=== PATIENT | male | born 1940 | race Caucasian/White ===

== ENCOUNTER → 2019-10-18 | Outpatient (CLI) | payer MEDICARE ==
[~2019-10-18] MED LIST: FISH1000 PO; HYDACE5 PO; LITH300ER PO; TOCO1000 PO
== END | disposition home or self-care (01) ==
LOC: LAB SHORT 08:58 → LAB 08:58
DX: L08.9 Local infection of the skin and subcutaneous tissue, unspecified (principal)
CPT/HCPCS: 87070; 87205

== ENCOUNTER 2019-10-21 00:32 | Day surgery (SDC) | payer MEDICARE | END 2019-10-21 23:16 | disposition home or self-care (01) | LOC: WOUND 00:32 | DX: L89.892 Pressure ulcer of other site, stage 2 (principal); I87.2 Venous insufficiency (chronic) (peripheral) | CPT/HCPCS: G0463 ==

== ENCOUNTER 2019-10-28 00:13 | Day surgery (SDC) | payer MEDICARE | END 2019-10-28 23:04 | disposition home or self-care (01) | LOC: WOUND 00:13 | DX: L89.892 Pressure ulcer of other site, stage 2 (principal); I87.2 Venous insufficiency (chronic) (peripheral); J44.9 Chronic obstructive pulmonary disease, unspecified; M19.90 Unspecified osteoarthritis, unspecified site ==

== ENCOUNTER 2019-11-27 13:37 | Inpatient (IN) | payer MEDICARE ==
[~2019-11-27] VITALS: Ht 180.3 cm; Wt 84.4 kg
[~2019-11-27 13:37] MED LIST changes: -HYDACE5 PO; -LITH300ER PO; +Lithium Carbon300 M2 PO
[2019-11-27] MEDS ORDERED: Prinivil10 MG PO (13:53)
[2019-11-27] MEDS ORDERED: Ceftriaxone250 MG (13:54)
[2019-11-27 14:36] LABS: Hematocrit 41.5 % (37.0-53.0); Mean Corpuscular HGB 31.1 pg (26.0-34.0); Mean Corpuscular HGB Conc 31.3 g/dL (31.5-36.5); Mean Corpuscular Volume 99 fL (80-100); Mean Platelet Volume 9.6 fL (9.1-12.4); Platelet Count 186 K/mm3 (150-400); RDW Coefficient Variation 13.6 % (11.7-14.2); RDW Standard Deviation 50.3 fL (35.1-46.3); Red Blood Cell Count 4.18 M/mm3 (4.30-5.90); White Blood Cell Count 18.55 K/mm3 (4.00-11.30)
[2019-11-27 14:45] LABS: Troponin I <0.015 ng/mL (0.000-0.040)
[2019-11-27 15:02] LABS: Alanine Aminotransfer (ALT/SGP 21 U/L (12-78); Albumin, Blood 3.5 g/dL (3.4-5.0); Alk Phos 35 U/L (50-136); Anion Gap 6 mmol/L (6-16); Aspartate Aminotrans (AST/SGOT 14 U/L (12-37); Bilirubin, Total 0.8 mg/dL (0.1-1.0); Blood Urea Nitrogen 21 mg/dL (8-24); Bun/Creatinine Ratio 15.6 (12.0-20.0); CO2, Blood 25 mmol/L (21-32); Calcium, Blood 9.1 mg/dL (8.5-10.1); Chloride, Blood 104 mmol/L (98-108); Creatinine, Blood 1.35 mg/dL (0.60-1.20); Globulin, Blood 3.5 g/dL (2.2-4.0); Glomerular Filtration Rate 54 (60-); Glucose, Blood 177 mg/dL (70-99); Potassium, Blood 4.1 mmol/L (3.5-5.5); Sodium, Blood 135 mmol/L (136-145)
[2019-11-27 15:11] LABS: BAND PERCENT MAN 12 % (0-8); BASOPHILS PERCENT MAN 0 % (0-2); EOSINOPHILS ABSOLUTE MAN 0.55 K/mm3 (0.00-0.68); EOSINOPHILS PERCENT MAN 3 % (0-6); MONOCYTES ABSOLUTE MAN 0.74 K/mm3 (0.16-1.47); MONOCYTES PERCENT MAN 4 % (4-13); NEUTROPHILS ABSOLUTE MAN 17.25 K/mm3 (1.96-9.15); SEG NEUTROPHILS PERCENT MAN 81 % (41-73); TOTAL CELLS COUNTED 100
[2019-11-27] MEDS ORDERED: LATA.005SO BOTHEYES (16:31)
[2019-11-27] MEDS ORDERED: IPRATROPIUM BRO30 ML (16:31)
[2019-11-27] MEDS ORDERED: Lithium Carbon300 M2 PO (16:58)
[2019-11-27] MEDS ORDERED: TRAM50 PO (16:59)
[2019-11-27] MEDS ORDERED: NORCO 7.5-3251 EAC1 PO (17:00)
[2019-11-27 18:11] LABS: Source, Urine Clean Catch
[2019-11-27 18:14] LABS: Appearance, Urine Clear (Clear); Bilirubin, Urine Neg (Neg); Blood, Urine Neg (Neg); Color, Urine Yellow (P-Yellow); Glucose Qualitative, Urine Neg (Neg); Ketones, Urine 1+ (Neg); Leukocyte Esterase, Urine Neg (Neg); Nitrite, Urine Neg (Neg); Protein, Urine Neg (Neg); Urobilinogen, Urine NORM (Normal)
[2019-11-27 19:02] LABS: Lithium 0.53 mmol/L (0.60-1.20)
--- NOTE | 2019-11-28 00:25 | NUR ---
ASSUMED CARE NOTE: ASSUMED CARE OF PT AT 2134, RECEVIED REPORT FROM RADHA CHACON. PT IS A/OX3, PT IS HOWEVER A POOR HISTORIAN WHEN IT COMES TO HIS PAST MEDICAL HISTORY. PT IS ON RA WITH SPO2 ABOVE 90% PT DENIES BEING SOB AT THIS TIME. PT STS HE BECOMES SOB WHILE AMBULATING. PT IS IN SR WITH HR IN THE 70'S, MURMUR CAN BE HEARD WITH ASCULTATION. PULSES ARE STRONG T/O ALL EXTREMITES. PT HAS A WOUND R FOOT (BALL OF FOOT) WOUND WAS CLEANED AND NEW MEPILEX WAS APPLIED, SEE PICTURE IN CHART. UPON ARRIVAL PT WAS GIVEN TO UNITS OF FFP. LACTIC HAS ELEVATED TO 3.2, CALLED SUMAN ELIZABETH, NO NEW ORDERS AT THIS TIME. PT FACIAL SWELLING HAS IMPROVED ACCORDING TO ER NURSE, PICTURES TAKEN FOR RECORDS. PT DENIES PRURITUS AT THIS TIME. PT REMAINS NPO. SUMAN ELIZABETH PERFORMED SWALLOW EVAL AT BEDSIDE, PT HAD DIFFICULTY SWALLOWING SMALL SIPS OF WATER, PT BEGAN TO COUGH. SWALLOW EVAL IN THE AM. PT STATES HE IS INCONTINENT AT NIGHT, HAS BEEN USING URINAL AT BEDSIDE, ATTENDS IN PLACE. BED AT LOWEST LEVEL, CALL LIGHT WITHIN REACH.
[2019-11-28 03:36] LABS: BASOPHILS ABSOLUTE AUTO 0.01 K/mm3 (0.00-0.23); BASOPHILS PERCENT AUTO 0 % (0-2); EOSINOPHILS ABSOLUTE AUTO 0.04 K/mm3 (0.00-0.68); EOSINOPHILS PERCENT AUTO 0 % (0-6); Hematocrit 37.8 % (37.0-53.0); Hemoglobin 11.9 g/dL (13.5-17.5); IMMATURE GRAN ABSOLUTE AUTO 0.19 K/mm3 (0.00-0.10); IMMATURE GRAN PERCENT AUTO 1 % (0-1); LYMPHOCYTES ABSOLUTE AUTO 0.21 K/mm3 (0.84-5.20); LYMPHOCYTES PERCENT AUTO 2 % (21-46); MONOCYTES ABSOLUTE AUTO 0.15 K/mm3 (0.16-1.47); MONOCYTES PERCENT AUTO 1 % (4-13); Mean Corpuscular HGB 31.2 pg (26.0-34.0); Mean Corpuscular HGB Conc 31.5 g/dL (31.5-36.5); Mean Corpuscular Volume 99 fL (80-100); Mean Platelet Volume 9.6 fL (9.1-12.4); NEUTROPHILS ABSOLUTE AUTO 13.08 K/mm3 (1.96-9.15); NEUTROPHILS PERCENT AUTO 96 % (41-73); Platelet Count 144 K/mm3 (150-400); RDW Coefficient Variation 13.8 % (11.7-14.2); RDW Standard Deviation 50.4 fL (35.1-46.3); Red Blood Cell Count 3.82 M/mm3 (4.30-5.90); White Blood Cell Count 13.68 K/mm3 (4.00-11.30)
--- NOTE | 2019-11-28 03:36 | NUR ---
UPDATE: NO SIGNIFICANT CHANGES. PT'S SWELLING TO FACE HAS DECREASED. PT STATES THAT SKIN FEELS LESS TIGHT. PT OZZING FROM BLISTERS ON FACE. VITALS STABLE. WILL CONTINUE TO MONITOR PT.
[2019-11-28 03:54] LABS: Alanine Aminotransfer (ALT/SGP 22 U/L (12-78); Albumin, Blood 3.2 g/dL (3.4-5.0); Albumin/Globulin Ratio 0.9 (0.8-1.8); Alk Phos 32 U/L (50-136); Anion Gap 7 mmol/L (6-16); Aspartate Aminotrans (AST/SGOT 7 U/L (12-37); Bilirubin, Total 0.3 mg/dL (0.1-1.0); Blood Urea Nitrogen 17 mg/dL (8-24); Bun/Creatinine Ratio 23.3 (12.0-20.0); CO2, Blood 23 mmol/L (21-32); Calcium, Blood 8.9 mg/dL (8.5-10.1); Chloride, Blood 113 mmol/L (98-108); Creatinine, Blood 0.73 mg/dL (0.60-1.20); Globulin, Blood 3.6 g/dL (2.2-4.0); Glomerular Filtration Rate >60 (60-); Glucose, Blood 222 mg/dL (70-99); Potassium, Blood 4.1 mmol/L (3.5-5.5); Sodium, Blood 143 mmol/L (136-145); Total Protein, Blood 6.8 g/dL (6.4-8.2)
--- NOTE | 2019-11-28 05:07 | NUR ---
SHIFT SUMMARY: NO SIGNIFICANT CHANGES, SEE PREVIOUS NOTE. PT CONTINUES TO BE A/OX3. PT HAS REMAINED ON RA WITH SPO2 ABOVE 90%, PT HAS DENIED SOB T/O SHIFT. PT HAS BEEN HAVING MODERATE AMOUNT OF THIN WHITE SECRETIONS, ORAL SUCTION AT BEDSIDE. PT WAS BEEN IN SR WITH HR IN THE 70'S, 1 DEGREE HB NOTED. PT HAS DENIED NAUSEA T/O SHIFT, ACTIVE BOWEL TONES HEARD IN ALL QUADRANTS, PT HAS A BM THIS SHIFT, ONE PERSON ASSIST TO BEDSIDE COMMODE. PT HAS BEEN USING URINAL AT BEDSIDE, ATTENDS IN PLACE. NO FURTHER SWELLING TO FACE, HOWEVER IS WEEPING T/O FACIAL PORES, DRAINAGE CRUST AFTER IT DRIES, YELLOWISH IN COLOR. PT HAS BEEN REPOSITIONED Q2HR T/O SHIFT. VITALS STABLE, AFEBRILE. BED AT LOWEST LEVEL, CALL LIGHT WITHIN REACH. WILL CONTINUE TO MONITOR PT UNTIL REPORT IS GIVEN TO ONCOMING SHIFT.
--- NOTE | 2019-11-28 08:30 | NUR ---
ASSUMED CARE REPORT RECEIVED FROM OSWALDO HANDLEY. PT RESTING IN BED, ALERT AND ORIENTED. PT'S SPEECH IS A LITTLE BIT SLURRED, WHICH PT SAYS IS NOT NORMAL FOR HIM, BUT IS HOW IT HAS BEEN SINCE COMING IN. FACE IS SWOLLEN AROUND HIS CHIN AND JAW, UP INTO BOTH OF HIS EARS. PT STATES THAT IT FEELS ABOUT THE SAME YESTERDAY. PT'S TONGUE DOES NOT APPEAR SWOLLEN. PT IS MANAGING HIS SECRETIONS WITHOUT DIFFICULTY. PT WAS CLEARING HIS THROAT, BUT HE SAYS HE HAS POST NASAL DRIP. EDUCATED PT TO INFORM STAFF IF HE FEELS LIKE HE IS NEEDING TO CLEAR HIS THROAT MORE OR IF HIS THROAT IS FEELING TIGHT. PT HAS REDNESS SPREADING FORM HIS L CHEST AROUND THE NIPPLE UP AND ACROSS TO HIS RIGHT CHEST. NO BLISTERS AT THIS TIME, BUT DOES HAVE SMALL SCALY APPEARING SPOTS. UPPER BACK IS PINK WELL WITH SOME OF THESE SPOTS, BUT NOT SEVERE. REDNESS BLANCHES. PT'S IS BRINGING IN EYE DROPS THAT PT STATES HE JUST SWITCHED TO 3 DAYS AGO WELL HIS NASAL SPRAY AND OINTMENT FOR HIS WOUND ON HIS R FOOT. DR. MITCHELL GAVE APPROVAL TO ORDER PT'S NASAL SPRAY AND OINTMENT WHEN IT GETS IN. HOLD ON THE EYE DROPS FOR NOW. NO OTHER REQUESTS FROM PT AT THIS TIME. CONTINUING TO MONITOR.
[2019-11-28] MEDS ORDERED: Mupirocin22 GM TOP (09:49)
--- NOTE | 2019-11-28 12:29 | NUR ---
REASSESSMENT PT'S LOWER FACE REAMINS SWOLLEN BUT DOESN'T APPEAR TO HAVE INCREASED SINCE THIS MORNING. REDNESS AND RASH OVER THE TORSO APPEARS UNCHANGED WELL. LUNGS REMAIN CLEAR, NO TONGUE SWELLING OR DIFFICULTY BREATHING. PT GOT UP TO THE CHAIR AND HAS SPENT HALF THE MORNING SITTING UP. PT WAS EVALUATED BY SPEECH THERAPY. PRECAUTIONS REVIEWED WITH PT BEFORE GIVING HIM HIS LUNCH TRAY. SR, BP STABLE. DRESSING ON HIS FOOT CHANGED AND OINTMENT APPLIED THAT PT HAS BEEN USING AT HOME. PT'S HAS BEEN AT THE BEDSIDE. CONTINUING TO MONITOR.
--- NOTE | 2019-11-28 15:01 | NUR ---
PT'S SWELLING APPEARS TO BE DECREASING WITH THE SKIN ACROSS HIS JAW, CHEEKS AND EARS NOT APPEARING TIGHT. PT STATES HE FEELS LIKE IT IS GOING DOWN WELL. RASH REMAINS UNCHANGED, NO BLISTERS. DR. MITCHELL NOTIFIED AND RECEIVED ORDER TO TRANSFER PT TO [facility], NO TELE. ALSO RECEIVED OK TO CHECK BLOOD SUGARS SINCE PT'S GLUCOSE THIS AM WAS 222 AND PT IS ON STEROIDS.
--- NOTE | 2019-11-28 16:12 | NUR ---
SHIFT SUMMARY PT HAS BEEN RESTING IN BED THIS AFTERNOON SINCE EATING LUNCH. HE DID WELL FOLLOWING INSTRUCTIONS TO TAKE SMALL SIPS AND EAT SLOW SO DID NOT HAVE ANY SIGNS OF ASPIRATION WHILE EATING. HIS RASH REMAINS UNCHANGED, SWELLING APPEARS A LITTLE BETTER STATED EARLIER. LUNGS ARE CLEAR, RA, SR, BP STABLE, VOIDING IN THE URINAL. DRESSING ON FOOT WOUND CHANGED TODAY. REFUSED A SHOWER THIS AFTERNOON. AWAITING MEDICAL BED. CONTINUING TO MONITOR.
--- NOTE | 2019-11-28 20:00 | NUR ---
ASSUMED CARE: PT A&0. AWAKE IN BED. IN SR. SBP IN THE 110S,HR IN THE 60S. LUNG SOUNDS CLEAR, SPO2 >90% ON RA. VOIDING INTO URINAL. TOOK MEDS THIS EVENING WITH APPLESAUCE AND TOLERATED WELL. YESTERDAY HIS LIPS AND FACE EXTENDING TO HIS EARS WAS SWOLLEN. PT STATES DESIREE FEELS THE SWELLING IS ALMOST GONE AND HES ALMOST AT BASELINE. RASH IS STILL PRESENT ON CHEST. PT IS A MOD ASSIST WHEN UP. HE USES A WALKER/CANE AT HOME. R LEG IS WEAKER THAN LEFT D/T COMPLICATIONS FROM AN EPIDURAL. BILAT IVS IN ARMS. NS INFUSING AT 100MLS/HR. WILL CONTINUE TO MONITOR
--- NOTE | 2019-11-28 22:09 | NUR ---
PT REPORTED TO ME THAT HE HAD HIS SNEAK HIM IN A HYDROCODONE DURING DAYSHIFT. HE HAD PREVIOUSLY STATED THAT HE HADN'T TAKEN ONE IN 4 OR 5 DAYS AND WAS STARTING TO GET A LITTLE TWITCHY. HE HAS CHRONIC PAIN AND TAKES HYDROCODONE ON A REGULAR BASIS. I ASKED PT IF HE FELT LIKE HE NEEDED PAIN MEDS WHILE IN THE HOSPITAL. HE STATED HE WOULDNT NEED THEM. CALLED SUMAN ELIZABETH TO LET HER KNOW PT HAD BRING OUTSIDE MED IN TO HOSPITAL. NO ORDERS RECEIVED
[2019-11-29 03:22] LABS: BASOPHILS ABSOLUTE AUTO 0.01 K/mm3 (0.00-0.23); BASOPHILS PERCENT AUTO 0 % (0-2); EOSINOPHILS PERCENT AUTO 1 % (0-6); Hematocrit 35.5 % (37.0-53.0); Hemoglobin 11.1 g/dL (13.5-17.5); IMMATURE GRAN PERCENT AUTO 1 % (0-1); LYMPHOCYTES ABSOLUTE AUTO 0.44 K/mm3 (0.84-5.20); LYMPHOCYTES PERCENT AUTO 4 % (21-46); MONOCYTES ABSOLUTE AUTO 0.35 K/mm3 (0.16-1.47); MONOCYTES PERCENT AUTO 3 % (4-13); Mean Corpuscular HGB 31.1 pg (26.0-34.0); Mean Corpuscular HGB Conc 31.3 g/dL (31.5-36.5); Mean Corpuscular Volume 99 fL (80-100); Mean Platelet Volume 9.7 fL (9.1-12.4); NEUTROPHILS ABSOLUTE AUTO 11.01 K/mm3 (1.96-9.15); NEUTROPHILS PERCENT AUTO 92 % (41-73); Platelet Count 185 K/mm3 (150-400); RDW Coefficient Variation 13.5 % (11.7-14.2); RDW Standard Deviation 50.1 fL (35.1-46.3); Red Blood Cell Count 3.57 M/mm3 (4.30-5.90); White Blood Cell Count 12.01 K/mm3 (4.00-11.30)
[2019-11-29 03:39] LABS: Anion Gap 6 mmol/L (6-16); Blood Urea Nitrogen 24 mg/dL (8-24); Bun/Creatinine Ratio 35.1 (12.0-20.0); CO2, Blood 22 mmol/L (21-32); Calcium, Blood 8.8 mg/dL (8.5-10.1); Chloride, Blood 115 mmol/L (98-108); Creatinine, Blood 0.68 mg/dL (0.60-1.20); Glomerular Filtration Rate >60 (60-); Glucose, Blood 190 mg/dL (70-99); Potassium, Blood 4.3 mmol/L (3.5-5.5); Sodium, Blood 143 mmol/L (136-145)
--- NOTE | 2019-11-29 05:45 | NUR ---
SHIFT SUMMARY: NO ACUTE CHANGES T/O SHIFT. PT SLEPT MAJORITY OF SHIFT.
--- NOTE | 2019-11-29 08:14 | NUR ---
ASSUMED CARE REPORT RECEIVED FROM OSWALDO SALINAS. PT RESTING IN BED, ALERT AND ORIENTED. FACIAL SWELLING IS SIGNIFICANTLY DECREASED FROM YESTERDAY. NO SWELLING NOTICED IN HIS EARS AND ONLY A LITTLE LEFT IN HIS CHEEKS. PT'S VOICE IS LESS HOARSE AND WORDS ARE NOT SLURRED LIKE YESTERDAY. PT'S CHEST AND BACK ARE STILL PINK, BUT APPEAR LESS RED THAN YESTERDAY. DR. MITCHELL CAME BY AND GAVE ORDERS TO CONTINUE ROCEPHIN, DC VANCO. PLAN TO KEEP PT ONE MORE DAY AND DC TOMORROW. PT WANTS TO GO HOME TODAY, BUT AFTER EXPLAINING THE IMPORTANCE OF MAKING SURE THE SWELLING STAYS DOWN SINCE IT WAS SO CLOSE TO HIS AIRWAY PT IS AGREEABLE TO ONE MORE DAY. CONTINUING TO MONITOR.
--- NOTE | 2019-11-29 13:29 | NUR ---
REASSESSMENT PT HAS CONTINUED TO DO WELL WITH NO INCREASE IN SWELLING OR REDNESS. HE THOUGHT HIS FACE STARTED TO FEEL A LITTLE SWOLLEN AFTER EATING A YOGURT HIS BROUGHT IN, BUT THEN HE SAID IT WENT AWAY WITHIN 5-10 MINUTES. LUNGS REMAIN CLEAR, RA, SR/SB, BP STABLE. HE GOT UP TO THE COMMODE AND HAD A BM. HE AMBULATED IN THE [place] WITH A WALKER. PT STATES HE FEELS STRONGER THAN YESTERDAY. PT'S IS AT THE BEDSIDE. CONTINUING TO MONITOR.
--- NOTE | 2019-11-29 17:31 | NUR ---
SHIFT SUMMARY PT CONTINUES TO DO WELL WITHOUT ANY INCREASE IN SWELLING OR REDNESS. HE GOT UP TO THE CHAIR TODAY, THEN TOOK A NAP THIS AFTERNOON. HE IS NOT SHOWING ANY SIGNS OF ASPIRATION WHEN HE EATS AND CONTINUES TO FOLLOW THE INSTRUCTIONS FROM SPEECH THERAPY. BLOOD SUGARS ARE BETTER CONTROLLED THIS EVENING. CONTINUING TO MONITOR.
--- NOTE | 2019-11-29 22:00 | NUR ---
ASSUMPTION OF CARE PT AWAKE, UP IN CHAIR WATCHING TELEVISION, VSS, PT ON ROOM AIR. R FOOT WOUND DRESSING C/D/I. PT TOLERATING DIET, SWALLOWS PILLS WHOLE WITH APPLESAUCE. PT REPORTS IMPROVEMENT IN ABILITY TO SWALLOW. PT VOIDING IN URINAL INDEPENDENTLY. CALL LIGHT WITHIN REACH, USES APPROPRIATELY.
--- NOTE | 2019-11-30 06:38 | NUR ---
SHIFT SUMMARY NO ACUTE CHANGES T/O NIGHT, PT REPORTS DIFFICULTY SLEEPING BUT ABLE TO GET SOME SLEEP. PT ANXIOUS TO GO HOME. PERIPHERAL IV ACCIDENTLY PULLED BY PT WHILE SLEEPING, LAC IV ACCESS REMAINS INTACT. CALL LIGHT WITHIN REACH, PT USING APPROPRIATELY.
[2019-11-30] MEDS ORDERED: PROBIOTIC 1 B1 EACH PO (10:04)
[2019-11-30] MEDS ORDERED: BANOPHEN ANTI-I28 GM TOP (10:10)
[2019-11-30] MEDS ORDERED: SULFAMETHOXAZO1 EAC1 PO (10:11)
--- NOTE | 2019-11-30 10:27 | NUR ---
CARE ASSUMED/DISCHARGE ASSESSMENT COMPLETED, PT ORIENTED X4, APPROPRIATE AND COOPERATIVE WITH CARE. CHEST RED FROM NIPPLE LINE TO BASE OF NECK WITH FEW SMALL BUMPS PRESENT AT BASE OF NECK, DO NOT APPEAR TO BE BLISTERS, SLIGHT REDNESS NOTED TO UPPER BACK AROUND BASE OF NECK WELL. NO NECK, FACIAL, OR ORAL EDEMA NOTED, PT DENIES DIFFICULTY SWALLOWING AND TALKING. VSS, SPO2 99% ON RA. PT TOLERATED MEAL AND PO PILLS WITHOUT DIFFICULTY, LAST DOSE OF ABX INFUSED PER ORDERS. DR. MITCHELL IN TO SEE PATIENT, DISCHARGE ORDERS RECEIVED. PT'S AT BEDSIDE, DISCHARGE INSTRUCTIONS GIVEN, PT AND VERBALIZE UNDERSTANDING. RX'S SENT TO [facility], IV DC'D WITH TIP INTACT, PT TO HOME AT 1025 WITH DC INSTRUCTIONS, HOME MEDS, AND BELONGINGS, ASSISTED TO CAR VIA WC BY STAFF MEMBER. PT TO F/U AND ESTABLISH PRIMARY CARE AT [facility].
[2019-11-30 11:12] LABS: Antinuclear Antibody Screen Negative (Negative)
== END 2019-11-30 10:22 | disposition home or self-care (01) | DRG 871 ==
LOC: ER 13:37 → ICUW 21:37
PROVIDERS: Emergency Medicine; Internal Medicine; ADMIT Internal Medicine
DX: A41.9 Sepsis, unspecified organism (principal); L89.893 Pressure ulcer of other site, stage 3; L03.313 Cellulitis of chest wall; L03.312 Cellulitis of back [any part except buttock and flank]; L03.211 Cellulitis of face; Z20.828 Contact with and (suspected) exposure to other viral communicable diseases; R65.20 Severe sepsis without septic shock; F31.9 Bipolar disorder, unspecified; I10 Essential (primary) hypertension; I95.9 Hypotension, unspecified
CPT/HCPCS: 36415; 36430; 51798; 71045; 76882; 80048; 80053; 80178; 81003; 82947; 83605; 83735; 83880; 84145; 84484; 85025; 86038; 86694; 86900; 86901; 87040; 87081; 87430; 92610; 93005; 93010; 94640; 96361; 96365; 96366; 96367; 96372-59; 96375; 99285-25; A9270-GY; J0171; J0696; J1200; J1650; J2930; J3370; J7030; J7512; P9059; Q0163; U0002